=== PATIENT | female | born 1980 | race Hispanic/Latino ===

== ENCOUNTER → 2016-09-27 | Outpatient (CLI) | payer OTHER ==
--- NOTE | 2016-09-28 03:05 | REP ---
Clinical: thoracic pain. Technique: AP, lateral, and swimmers views. Findings: Alignment and kyphosis is maintained. Vertebral bodies intact. No acute fracture / compression injury or subluxation. No degenerative changes. Paravertebral soft tissues are normal. Impression: Normal thoracic spine series. Signed by Marty Del Valle MD 09/28/2016 02:58 A
[2016-09-28 11:50] LABS: FREE T4 1.17 NG/DL (0.76-1.46)
== END ==
LOC: M LRY 14:26
PROVIDERS: ATTEND Physician Assistant Medical
DX: E55.9 Vitamin D deficiency, unspecified (principal); E03.9 Hypothyroidism, unspecified; M54.6 Pain in thoracic spine

== ENCOUNTER → 2016-10-02 | Outpatient (REF) | payer OTHER | LOC: M SFHCLERA 17:43 | PROVIDERS: ATTEND Nurse Practitioner Family | DX: M54.5 Low back pain (principal) ==

== ENCOUNTER → 2017-01-16 | Outpatient (CLI) | payer OTHER ==
[2017-01-16 19:44] LABS: FREE T4 1.08 NG/DL (0.76-1.46)
[2017-01-16 19:45] LABS: BASO % 0.8 % (0.0-1.0); EOS # 0.2 K/mm3 (0.0-0.50); EOS % 2.6 % (0.0-3.0); LYMPH # 1.9 K/mm3 (1.5-4.5); LYMPH % 26.5 % (24.0-44.0); MEAN CORPUSCULAR HEMOGLOBIN 28.7 pg (27.0-33.0); MEAN CORPUSCULAR HGB CONC 33.4 g/dl (32.0-36.5); MONO # 0.4 K/mm3 (0.0-0.8); MONO % 5.6 % (0.0-5.0); NEUTROPHILS # 4.4 K/mm3 (1.8-7.7); NEUTROPHILS % 63.2 % (36.0-66.0); RED CELL DISTRIBUTION WIDTH 12.9 % (11.5-14.5); WHITE BLOOD COUNT 6.9 K/mm3 (4.0-10.0)
== END ==
LOC: M LRY 11:58
PROVIDERS: ATTEND Physician Assistant Medical
DX: N92.1 Excessive and frequent menstruation with irregular cycle (principal); E03.9 Hypothyroidism, unspecified

== ENCOUNTER → 2017-04-16 | Outpatient (CLI) | payer OTHER ==
--- NOTE | 2017-04-16 13:31 | REP ---
Pelvic ultrasound including transabdominal, endovaginal and Doppler ultrasound assessment: The bladder is adequately distended. The uterus is anteverted and mildly enlarged measuring 9.7 x 5.8 x 6.7 cm. The endometrium is upper normal thickness measuring 19.8 mm. The ovaries are normal size. Right ovary measures 3.8 x 2.9-0.4 cm. Left ovary measures 3.7 x 3.1 x 2.6 cm. There are no ovarian masses or cysts. There are small follicles in each ovary. There is vascular flow in both ovaries with the Doppler resistive index of the intraparenchymal arteries of the right ovary measuring 0.50 and left ovary 0.00. There is a pedunculated fibroid along the posterior myometrium measuring 1.5 x 1.4 x 1.0 cm. Impression: Pedunculated fibroid along the posterior myometrium. Otherwise, negative pelvic ultrasound. Signed by Ed Oro MD 04/16/2017 01:23 P
== END ==
LOC: M RAD 12:16
PROVIDERS: ATTEND Physician Assistant Medical
DX: D25.0 Submucous leiomyoma of uterus (principal); N94.6 Dysmenorrhea, unspecified; N92.1 Excessive and frequent menstruation with irregular cycle

== ENCOUNTER → 2017-05-24 | Outpatient (CLI) | payer OTHER | LOC: M LRY 13:26 | PROVIDERS: ATTEND Nurse Practitioner Women's Health | DX: N92.0 Excessive and frequent menstruation with regular cycle (principal) ==

== ENCOUNTER → 2017-05-24 | Outpatient (CLI) | payer OTHER ==
[2017-05-24 16:28] LABS: BASO % 0.7 % (0.0-1.0); EOS # 0.1 K/mm3 (0.0-0.50); EOS % 1.7 % (0.0-3.0); LARGE UNSTAINED CELL # 0.1 K/mm3 (0.0-0.4); LYMPH # 1.5 K/mm3 (1.5-4.5); LYMPH % 23.7 % (24.0-44.0); MEAN CORPUSCULAR HEMOGLOBIN 27.3 pg (27.0-33.0); MEAN CORPUSCULAR HGB CONC 32.3 g/dl (32.0-36.5); MEAN CORPUSCULAR VOLUME 84.5 fl (80.0-96.0); MONO # 0.2 K/mm3 (0.0-0.8); MONO % 4.1 % (0.0-5.0); NEUTROPHILS # 4.1 K/mm3 (1.8-7.7); NEUTROPHILS % 68.8 % (36.0-66.0); PLATELET COUNT, AUTOMATED 254 k/mm3 (150-450); RED CELL DISTRIBUTION WIDTH 14.1 % (11.5-14.5)
[2017-05-24 16:40] LABS: PROLACTIN 9.4 NG/ML
[2017-05-24 16:43] LABS: FREE T4 1.12 NG/DL (0.76-1.46)
== END ==
LOC: M LRY 13:28
PROVIDERS: ATTEND Physician Assistant Medical
DX: E03.9 Hypothyroidism, unspecified (principal)

== ENCOUNTER → 2017-06-18 | Outpatient (CLI) | payer OTHER ==
[2017-06-18 19:37] LABS: MEAN CORPUSCULAR HEMOGLOBIN 27.6 pg (27.0-33.0); MEAN CORPUSCULAR HGB CONC 33.2 g/dl (32.0-36.5); MEAN CORPUSCULAR VOLUME 83.3 fl (80.0-96.0); RED CELL DISTRIBUTION WIDTH 13.7 % (11.5-14.5); WHITE BLOOD COUNT 7.4 10^3/uL (4.0-10.0)
== END ==
LOC: M SMT 14:51
PROVIDERS: ATTEND Obstetrics & Gynecology
DX: D25.9 Leiomyoma of uterus, unspecified (principal)

== ENCOUNTER → 2018-03-11 | Outpatient (CLI) | payer OTHER ==
[2018-03-11 17:38] LABS: FREE T4 0.96 NG/DL (0.76-1.46)
== END ==
LOC: M LRY 11:44
DX: E03.9 Hypothyroidism, unspecified (principal)
CPT/HCPCS: 84443